=== PATIENT | male | born 1935 | race Caucasian/White ===

== ENCOUNTER 2017-07-15 18:52 | Inpatient (IN) | payer OTHER, BC ==
[~2017-07-15] VITALS: Ht 175.3 cm; Wt 61.3 kg
[~2017-07-15 18:52] MED LIST: ACET-1346 PO; CARB25TA PO; CIPR-255 PO; CLC100X PO; FLR/1 PO; POLY335019 PO; SENN-91 PO; SNM/25100 PO
[2017-07-15] MEDS ORDERED: SODIUM CHLORIDE 0.9% 1000ML 1,000 ML IV STA (18:59)
--- NOTE | 2017-07-15 19:05 | EMERGENCY ROOM VISIT NOTE ---
History Report prepared by Estela: Hamilton Harris Under the Supervision of: Dr. Ashish Gardner M.D. First contact with patient: 18:54 Stated Complaint: [facility] History of Present Illness The patient is a 81 year old male who presents to the Emergency Room with complaints of a resolved syncopal episode that occurred prior to arrival. Per nursing, the patient has a history of Parkinson's and recurrent UTIs. The patient was eating at [facility] when he became pale and lost consciousness for a couple of minutes. His blood pressure was found to be in the 70s systolically. They report that the patient is typically not fully responsive at baseline. Per EMS, the patient's blood pressure was stable the whole ride here. The patient's HPI is limited due to the patient's unresponsiveness. Source of History: patient Onset: MEDICAL RECORD SPECIALIST Position: other (global) Quality: other (syncope) Timing: resolved Note: Associated symptoms: pale, hypotension Review of Systems The patient's ROS is limited due to the patient's unresponsiveness. Past Medical & Surgical Medical Problems: (1) Basal cell carcinoma of ear (2) Benign prostatic hyperplasia (3) Calculus of kidney and ureter (4) CKD (chronic kidney disease) stage 3, GFR 30-59 ml/min (5) Dyslipidemia (6) Parkinson's disease Family History Diabetes mellitus Hypertension Social History Smoking Status: Unknown if Ever Smoked Alcohol Use: none Drug Use: none Marital Status: Housing Status: lives with family Occupation Status: retired Current/Historical Medications Scheduled Carbidopa-Levodopa (Sinemet Cr 25MG/100MG), 1 TAB PO BID Ciprofloxacin Hcl (Cipro), 500 MG PO BID Docusate Sodium (Colace), 100 MG PO BID Fludrocortisone Acetate (Florinef), 50 MCG PO DAILY Levodopa/Carbidopa (Sinemet 25MG/100MG), 0.5 TAB PO Q2H Polyethylene Glycol 3350 (Miralax), 17 GM PO Q2D Sennosides-Docusate Sodium (Senna S), 1 TAB PO DAILY Scheduled PRN Acetaminophen (Acetaminophen), 325 MG PO Q4H PRN for Pain or Fever Allergies Coded Allergies: No Known Allergies (Unverified , 08/13/13) Physical Exam Vital Signs Date Time Temp Pulse Resp B/P (MAP) Pulse Ox O2 Delivery O2 Flow Rate FiO2 07/15/17 19:25 97 Room Air 07/15/17 19:23 81 07/15/17 19:14 36.4 83 22 110/69 97 Room Air Physical Exam GENERAL: Awake, alert, tremulous, well-appearing, in no acute distress HENT: Normocephalic, atraumatic. Oropharynx unremarkable. EYES: Normal conjunctiva. Sclera non-icteric. NECK: Supple. No nuchal rigidity. FROM. No JVD. RESPIRATORY: Clear to auscultation. CARDIAC: Regular rate, normal rhythm. Extremities warm and well perfused. Pulses equal. ABDOMEN: Soft, non-distended. No tenderness to palpation. No rebound or guarding. No masses. RECTAL: Deferred. MUSCULOSKELETAL: Chest examination reveals no tenderness. The back is symmetrical on inspection without obvious abnormality. There is no CVA tenderness to palpation. No joint edema. LOWER EXTREMITIES: Calves are equal size bilaterally and non-tender. No edema. No discoloration. NEURO: Normal sensorium. Answers questions. Tremulous. No sensory or motor deficits noted. SKIN: No rash or jaundice noted. Wound to the anterior chest wall that he states is from basal cell carcinoma. Medical Decision & Procedures ER Provider Diagnostic Interpretation: X-ray results as stated below per interpretation by me and the radiologist: CHEST ONE VIEW PORTABLE HISTORY: Pt c/o hypotension COMPARISON: Chest 04/25/2014. FINDINGS: The lungs are clear. Cardiac silhouette is normal in size. No pleural effusions. No pneumothorax. Moderate to large amount of well-formed stool seen within the colon. IMPRESSION: No acute process. Electronically signed by: Jl Martinez M.D. 07/15/2017 7:50 PM Dictated Date/Time: 07/15/2017 7:49 PM Laboratory Results 07/15/17 00:00 Red Blood Count 3.00, Mean Corpuscular Volume 92.0, Mean Corpuscular Hemoglobin 30.0, Mean Corpuscular Hemoglobin Concent 32.6, Mean Platelet Volume 9.1, Neutrophils (%) (Auto) 58.6, Lymphocytes (%) (Auto) 19.1, Monocytes (%) (Auto) 21.2, Eosinophils (%) (Auto) 0.4, Basophils (%) (Auto) 0.1, Neutrophils # (Auto ) 4.19, Lymphocytes # (Auto) 1.37, Monocytes # (Auto) 1.52, Eosinophils # (Auto ) 0.03, Basophils # (Auto) 0.01 07/15/17 00:00 Test 07/15/17 00:00 White Blood Count 7.16 K/uL (4.8-10.8) Red Blood Count 3.00 M/uL (4.7-6.1) Hemoglobin 9.0 g/dL (14.0-18.0) Hematocrit 27.6 % (42-52) Mean Corpuscular Volume 92.0 fL (80-100) Mean Corpuscular Hemoglobin 30.0 pg (25-34) Mean Corpuscular Hemoglobin Concent 32.6 g/dl (32-36) Platelet Count 297 K/uL (130-400) Mean Platelet Volume 9.1 fL (7.4-10.4) Neutrophils (%) (Auto) 58.6 % Lymphocytes (%) (Auto) 19.1 % Monocytes (%) (Auto) 21.2 % Eosinophils (%) (Auto) 0.4 % Basophils (%) (Auto) 0.1 % Neutrophils # (Auto) 4.19 K/uL (1.4-6.5) Lymphocytes # (Auto) 1.37 K/uL (1.2-3.4) Monocytes # (Auto) 1.52 K/uL (0.11-0.59) Eosinophils # (Auto) 0.03 K/uL (0-0.5) Basophils # (Auto) 0.01 K/uL (0-0.2) RDW Standard Deviation 53.9 fL (36.4-46.3) RDW Coefficient of Variation 15.8 % (11.5-14.5) Immature Granulocyte % (Auto) 0.6 % Immature Granulocyte # (Auto) 0.04 K/uL (0.00-0.02) Anion Gap 7.0 mmol/L (3-11) Est Creatinine Clear Calc Drug Dose 22.1 ml/min Estimated GFR () 29.9 Estimated GFR (Non- 25.8 BUN/Creatinine Ratio 21.7 (10-20) Calcium Level 8.4 mg/dl (8.5-10.1) Total Bilirubin 0.4 mg/dl (0.2-1) Direct Bilirubin < 0.1 mg/dl (0-0.2) Aspartate Amino Transf (AST/SGOT) 10 U/L (15-37) Alanine Aminotransferase (ALT/SGPT) < 6 U/L (12-78) Alkaline Phosphatase 115 U/L (45-117) Total Creatine Kinase 39 U/L (39-308) Creatine Kinase MB 1.0 ng/ml (0.5-3.6) Creatine Kinase MB Ratio 2.6 (0-3.0) Troponin I < 0.015 ng/ml (0-0.045) Total Protein 7.2 gm/dl (6.4-8.2) Albumin 3.5 gm/dl (3.4-5.0) Thyroid Stimulating Hormone (TSH) 1.630 uIu/ml (0.300-4.500) Labs reviewed by ED physician. Medications Administered Medications (Trade) Dose Ordered Sig/Michael Route Start Time Stop Time Status Last Admin Dose Admin Sodium Chloride 1,000 ml @ 999 mls/hr Q1H1M STAT IV 07/15/17 18:59 07/15/17 19:59 DC 07/15/17 19:31 999 MLS/HR Ceftriaxone Sodium (Rocephin Inj) 1 gm NOW STAT IV 07/15/17 19:22 07/15/17 19:23 DC 07/15/17 19:32 1 GM Ciprofloxacin (Cipro Tab) 500 mg NOW STAT PO 07/15/17 19:22 07/15/17 19:23 DC 07/15/17 19:31 500 MG ECG Per My Interpretation Indication: weakness Rate (beats per minute): 83 Rhythm: other (Accelerated junctional) Findings: other (No ST elevation or depression) ED Course 1854: Past medical records reviewed. The patient was evaluated in room B10. A complete history and physical examination was performed. 1858: Sodium Chloride 1000 ml @ 999 mls/hr IV. 1921: Ordered Cipro Tab 500 mg PO, Rocephin Injection 1 gm IV. 1944: I reevaluated the patient and updated his on the results. I discussed the treatment plan, which she agrees to. The patient will be further evaluated. 1958: I discussed the patient's case [facility] He understands the patient's condition and agrees to accept the patient. The patient will be further evaluated. Medical Decision Prior records/ancillary studies reviewed and summarized above. Nursing notes reviewed. Additional history obtained from nursing and EMS. Differential diagnosis: Etiologies such as metabolic, infection, hypo/hyperglycemia, electrolyte abnormalities, cardiac sources, intracerebral event, toxicologic, neurologic, as well as others were entertained. This is an 81-year-old male who presents the emergency department complaining of urinary tract symptoms along with hypotension. Upon arrival to the emergency department the patient is normotensive he was given a normal saline bolus. His creatinine does appear to be slightly elevated. For this reason I did discuss the case with the hospitalist service. Patient was given Rocephin and Cipro here in the emergency department. I did discuss the case with the patient's who was in agreement with the treatment plan. Medication Reconcilliation Current Medication List: was personally reviewed by me Blood Pressure Screening Patient's blood pressure: Normal blood pressure Consults Time Called: 1937 Consulting Physician: Milton Dowd Hospitalist Returned Call: 1958 I discussed the patient's case with [facility]. He understands the patient's condition and agrees to accept the patient. The patient will be further evaluated. Impression Primary Impression: UTI (urinary tract infection) Additional Impression: Dehydration Scribe Attestation The scribe's documentation has been prepared under my direction and personally reviewed by me in its entirety. I confirm that the note above accurately reflects all work, treatment, procedures, and medical decision making performed by me. Departure Information Dispostion Being Evaluated By Hospitalist Referrals Allen Sam D.O. (PCP) Problem Qualifiers Primary Impression: UTI (urinary tract infection) Urinary tract infection type: acute cystitis Hematuria presence: with hematuria Qualified Codes: N30.01 - Acute cystitis with hematuria
[2017-07-15 19:10] LABS: HEMATOCRIT 27.6 % (42-52); MEAN CORPUSCULAR HGB CONC 32.6 g/dl (32-36); MEAN PLATELET VOLUME 9.1 fL (7.4-10.4); PLATELET COUNT 297 K/uL (130-400); RED CELL DISTRIBUTION WIDTH CV 15.8 % (11.5-14.5); RED CELL DISTRIBUTION WIDTH SD 53.9 fL (36.4-46.3); WHITE BLOOD COUNT 7.16 K/uL (4.8-10.8)
[2017-07-15] MEDS ORDERED: CEFTRIAXONE SOD INJ 1 GM ADDVIAL IV STA (19:22)
[2017-07-15] MEDS ORDERED: CIPROFLOXACIN 500 MG TAB PO STA (19:22)
[2017-07-15 19:27] LABS: ALBUMIN 3.5 gm/dl (3.4-5.0); ALT/SGPT < 6 U/L (12-78); AST/SGOT 10 U/L (15-37); BLOOD UREA NITROGEN 49 mg/dl (7-18); CALCIUM 8.4 mg/dl (8.5-10.1); CARBON DIOXIDE 24 mmol/L (21-32); CREATININE 2.28 mg/dl (0.60-1.40); GLUCOSE 98 mg/dl (70-99); POTASSIUM 4.6 mmol/L (3.5-5.1); SODIUM 139 mmol/L (136-145)
[2017-07-15 19:35] LABS: BASO % 0.1 %; BASO ABS # 0.01 K/uL (0-0.2); EOS % 0.4 %; EOS ABS # 0.03 K/uL (0-0.5); IG# 0.04 K/uL (0.00-0.02); LYMPH % 19.1 %; LYMPH ABS # 1.37 K/uL (1.2-3.4); MONO % 21.2 %; MONO ABS # 1.52 K/uL (0.11-0.59); NEUT % 58.6 %; NEUT ABS # 4.19 K/uL (1.4-6.5)
[2017-07-15 19:38] LABS: ALKALINE PHOSPHATASE 115 U/L (45-117); TOTAL PROTEIN 7.2 gm/dl (6.4-8.2)
--- NOTE | 2017-07-15 19:51 | DIAGNOSTIC IMAGING REPORT ---
CHEST ONE VIEW PORTABLE HISTORY: Pt c/o hypotension COMPARISON: Chest 04/25/2014. FINDINGS: The lungs are clear. Cardiac silhouette is normal in size. No pleural effusions. No pneumothorax. Moderate to large amount of well-formed stool seen within the colon. IMPRESSION: No acute process. Electronically signed by: Jl Martinez M.D. 07/15/2017 7:50 PM Dictated Date/Time: 07/15/2017 7:49 PM
[2017-07-15] MEDS ORDERED: ACET-1311 PO (21:06)
[2017-07-15] MEDS ORDERED: MOML PO (21:06)
[2017-07-15] MEDS ORDERED: FLUD0.1T10 PO (21:06)
[2017-07-15] MEDS ORDERED: CARB25TA12 PO (21:06)
[2017-07-15] MEDS ORDERED: TAMS0.4C38 PO (21:06)
[2017-07-15] MEDS ORDERED: MTR400 PO (21:06)
[2017-07-15] MEDS ORDERED: VENL75CA PO (21:06)
[2017-07-15] MEDS ORDERED: POLY335019 PO (21:06)
[2017-07-15] MEDS ORDERED: ACET-1693 PO (21:06)
[2017-07-15] MEDS ORDERED: SENN-91 PO (21:06)
[2017-07-15] MEDS ORDERED: TRIM100T PO (21:06)
[2017-07-15] MEDS ORDERED: CREA1CRE (21:19)
--- NOTE | 2017-07-15 22:10 | History and Physical ---
History & Physical Date & Time of Service: July 15, 2017 at 22:10 Chief Complaint: Lethargic / [facility] Primary Care Physician: Allen Sam D.OHorace History of Present Illness Source: patient, spouse, hospital records, intermediate 81 years old male with past medical history of parkinsonism, recurrent UTI, BPH , CKD stage III from [facility] was sent to the ER for syncope. History is limited due to patient mental status. History obtained from intermediate and ER chart and his . As per patient had 3 recurrent UTI in the past few months. Also said patient has history of orthostatic hypotension. As per when patient is going to the bathroom, patient has to have 2 people to help him walk to the due to drop in the blood pressure when standing that cause him to have dizziness or syncope. As per intermediate chart, the patient was eating when she became pale and lost consciousness for a few minutes. His blood pressure was found to be in the 70 systolic. EMS was called and brought the patient to the ER. As per EMS his BP was stable when transporting. As per his speech has not been very fluent due to the Parkinson in the past few months. As per in the past few months patient has been declined, weak and his appetite has been poor. Denies any chest pain, palpitation, dizziness, shortness of breath, headache, fever and chills. Past Medical/Surgical History Medical Problems: (1) Basal cell carcinoma of ear (2) Benign prostatic hyperplasia (3) Calculus of kidney and ureter (4) CKD (chronic kidney disease) stage 3, GFR 30-59 ml/min (5) Dehydration (6) Dyslipidemia (7) Hypotension (8) Parkinson's disease (9) Parkinsons disease (10) Weakness Family History Diabetes mellitus Hypertension Social History Smoking Status: Unknown if Ever Smoked Drug Use: none Marital Status: Housing status: intermediate Occupational Status: retired Immunizations History of Influenza Vaccine: No History of Tetanus Vaccine?: Unknown History of Pneumococcal: Yes Pneumococcal Date: Jun 02, 2009 History of Hepatitis B Vaccine: No Allergies Coded Allergies: Alfuzosin (Unverified Allergy, Unknown, ., 07/15/17) Home Medications Scheduled Carbidopa/Levodopa (Sinemet 25MG/100MG), 1 TAB PO QID Fludrocortisone Acetate (Florinef), 0.25 TAB PO HS Polyethylene Glycol 3350 (Miralax), 17 GM PO DAILY Tamsulosin Hcl (Flomax), 0.4 MG PO HS Trimethoprim (Proloprim), 100 MG PO HS Venlafaxine Hcl (Effexor Xr), 225 MG PO QAM Scheduled PRN Acetaminophen (Tylenol), 650 MG PO Q4 PRN for Pain Acetaminophen Tab (Tylenol), 650 MG PO AMHS PRN for Pain Ibuprofen (Ibuprofen), 400 MG PO QPM PRN for Headache Magnesium Hydroxide (Milk Of Magnesia), 30 ML PO DAILY PRN for Constipation Sennosides-Docusate Sodium (Senna S), 4 TAB PO AMPM PRN for Constipation Miscellaneous Medications Cream Base (Emollient Cream) Review of Systems Constitutional: + weight loss, + weakness, + fatigue, No fever, No chills Eyes: No eye pain, No discharge ENT: No nasal symptoms, No sore throat Respiratory: No cough, No sputum, No shortness of breath Cardiovascular: No chest pain, No edema, No palpitations Abdomen: No pain, No vomiting Musculoskeletal: No swelling, No calf pain Genitourinary - Male: No hematuria, No dysuria Neurologic: + memory loss, + weakness, + balance problems Psychiatric: No substance abuse Endocrine: + fatigue, No excessive thirst Hematologic / Lymphatic: No abnormal bleeding/bruising, No night sweats Integumentary: No rash, No itch Physical Exam Vital Signs Date Time Temp Pulse Resp B/P (MAP) Pulse Ox O2 Delivery O2 Flow Rate FiO2 07/15/17 21:56 78 18 127/78 100 07/15/17 21:35 78 18 100 07/15/17 21:30 127/78 07/15/17 21:26 125/77 07/15/17 21:05 81 21 100 07/15/17 20:35 81 28 99 07/15/17 20:30 82 33 103/67 99 07/15/17 20:14 82 23 95/57 98 07/15/17 19:25 97 Room Air 07/15/17 19:23 81 07/15/17 19:14 36.4 83 22 110/69 97 Room Air 07/15/17 18:57 84 29 110/69 97 General Appearance: no apparent distress, + cachetic, + pertinent finding Head: normocephalic, atraumatic Eyes: PERRL, EOMI ENT: hearing grossly normal Neck: no JVD, trachea midline Respiratory/Chest: chest non-tender, no respiratory distress, no accessory muscle use Cardiovascular: regular rate, rhythm, no edema, no JVD Abdomen/GI: normal bowel sounds, non tender, soft Back: no CVA tenderness Extremities/Musculoskelatal: no calf tenderness, no pedal edema Neurologic/Psych: no motor/sensory deficits, alert, normal mood/affect Skin: warm/dry, no rash Diagnostics Laboratory Results Results Past 24 Hours Test 07/15/17 00:00 07/15/17 19:26 07/15/17 20:03 Range/Units White Blood Count 7.16 4.8-10.8 K/uL Red Blood Count 3.00 4.7-6.1 M/uL Hemoglobin 9.0 14.0-18.0 g/dL Hematocrit 27.6 42-52 % Mean Corpuscular Volume 92.0 80-100 fL Mean Corpuscular Hemoglobin 30.0 25-34 pg Mean Corpuscular Hemoglobin Concent 32.6 32-36 g/dl Platelet Count 297 130-400 K/uL Mean Platelet Volume 9.1 7.4-10.4 fL Neutrophils (%) (Auto) 58.6 % Lymphocytes (%) (Auto) 19.1 % Monocytes (%) (Auto) 21.2 % Eosinophils (%) (Auto) 0.4 % Basophils (%) (Auto) 0.1 % Neutrophils # (Auto) 4.19 1.4-6.5 K/uL Lymphocytes # (Auto) 1.37 1.2-3.4 K/uL Monocytes # (Auto) 1.52 0.11-0.59 K/uL Eosinophils # (Auto) 0.03 0-0.5 K/uL Basophils # (Auto) 0.01 0-0.2 K/uL RDW Standard Deviation 53.9 36.4-46.3 fL RDW Coefficient of Variation 15.8 11.5-14.5 % Immature Granulocyte % (Auto) 0.6 % Immature Granulocyte # (Auto) 0.04 0.00-0.02 K/uL Sodium Level 139 136-145 mmol/L Potassium Level 4.6 3.5-5.1 mmol/L Chloride Level 108 98-107 mmol/L Carbon Dioxide Level 24 21-32 mmol/L Anion Gap 7.0 3-11 mmol/L Blood Urea Nitrogen 49 7-18 mg/dl Creatinine 2.28 0.60-1.40 mg/dl Est Creatinine Clear Calc Drug Dose 22.1 ml/min Estimated GFR () 29.9 Estimated GFR (Non- 25.8 BUN/Creatinine Ratio 21.7 10-20 Random Glucose 98 70-99 mg/dl Calcium Level 8.4 8.5-10.1 mg/dl Total Bilirubin 0.4 0.2-1 mg/dl Direct Bilirubin < 0.1 0-0.2 mg/dl Aspartate Amino Transf (AST/SGOT) 10 15-37 U/L Alanine Aminotransferase (ALT/SGPT) < 6 12-78 U/L Alkaline Phosphatase 115 45-117 U/L Total Creatine Kinase 39 39-308 U/L Creatine Kinase MB 1.0 0.5-3.6 ng/ml Creatine Kinase MB Ratio 2.6 0-3.0 Troponin I < 0.015 0-0.045 ng/ml Total Protein 7.2 6.4-8.2 gm/dl Albumin 3.5 3.4-5.0 gm/dl Thyroid Stimulating Hormone (TSH) 1.630 0.300-4.500 uIu/ml Bedside Glucose 120 70-99 mg/dl Urine Color ORANGE Urine Appearance CLOUDY CLEAR Urine pH >= 9.0 4.5-7.5 Urine Specific [place] 1.018 1.000-1.030 Urine Protein NEG NEG Urine Glucose (UA) NEG NEG Urine Ketones NEG NEG Urine Occult Blood 2+ NEG Urine Nitrite NEG NEG Urine Bilirubin NEG NEG Urine Urobilinogen NEG NEG Urine Leukocyte Esterase LARGE NEG Urine WBC (Auto) >30 0-5 /hpf Urine RBC (Auto) >30 0-4 /hpf Urine Hyaline Casts (Auto) 5-10 0-5 /lpf Urine Epithelial Cells (Auto) 20-30 0-5 /lpf Urine Bacteria (Auto) 4+ NEG Urine Yeast (Auto) NONE PRSENT Microbiology Results 07/15/17 Urine Culture, Received Pending Diagnostic Radiology CHEST ONE VIEW PORTABLE HISTORY: Pt c/o hypotension COMPARISON: Chest 04/25/2014. FINDINGS: The lungs are clear. Cardiac silhouette is normal in size. No pleural effusions. No pneumothorax. Moderate to large amount of well-formed stool seen within the colon. IMPRESSION: No acute process. Electronically signed by: Jl Martinez M.D. 07/15/2017 7:50 PM Dictated Date/Time: 07/15/2017 7:49 PM Impression Assessment and Plan Syncopal episode Possible related to orthostatic hypotension Vs Vasovagal No focal neuro deficit Stable UTI History of recurrent UTI UA positive for large leukocyte and bacteria Received Cipro and Rocephin in the ER Recent urine culture on 06/21 grew proteus mirabilis that was sensitive to Rocephin We will continue Rocephin IV Check urine culture and blood culture Hypotension Possible related to dehydration Receive IV fluid Continue gentle hydration Monitor BP Acute kidney injury on CKD stage III Baseline creatinine 1 Creatinine on admission 2.2 Continue IV fluid Avoid nephrotoxic agent Monitor BMP BPH Continue Flomax Weight loss Due to poor oral intake Increase protein intake in diet Consult nutrition Parkinsonism Continue levodopa-carbidopa DVT prophylaxis on heparin subcu CODE STATUS full code Resuscitation Status VTE Prophylaxis Will order VTE Prophylaxis: Yes
[2017-07-15 22:25] VITALS: BP 141/81; PULSE 76; TEMP 36.6; O2SAT 96; Ht 175.3 cm; Wt 61.3 kg
[2017-07-15 23:48] VITALS: BP 132/78; PULSE 80; TEMP 36.7; O2SAT 98
[2017-07-16] VITALS (8 sets, daily range): BP systolic 112–132; BP diastolic 65–78; PULSE 71–92; TEMP 36.3–36.7; O2SAT 96–99
[2017-07-16] MEDS ORDERED: ACETAMINOPHEN 325 MG TAB PO PRN
[2017-07-16] MEDS ORDERED: SODIUM CHLORIDE 0.9% 1000ML 1,000 ML IV SCH
[2017-07-16 06:29] LABS: HEMATOCRIT 26.2 % (42-52); HEMOGLOBIN 8.5 g/dL (14.0-18.0); MEAN CELL VOLUME 92.6 fL (80-100); MEAN CORPUSCULAR HGB CONC 32.4 g/dl (32-36); MEAN PLATELET VOLUME 9.3 fL (7.4-10.4); PLATELET COUNT 286 K/uL (130-400); RED CELL DISTRIBUTION WIDTH CV 15.7 % (11.5-14.5); RED CELL DISTRIBUTION WIDTH SD 53.8 fL (36.4-46.3); WHITE BLOOD COUNT 6.56 K/uL (4.8-10.8)
[2017-07-16 06:54] LABS: CALCIUM 8.2 mg/dl (8.5-10.1); CREATININE 1.92 mg/dl (0.60-1.40); POTASSIUM 4.3 mmol/L (3.5-5.1)
[2017-07-16] MEDS: VENLAFAXINE HCL XR 75 MG CAPXR PO SCH (08:14)
[2017-07-16] MEDS: CARBIDOPA/LEVODOPA 25/100MG TAB PO SCH ×4 (08:14→20:59)
[2017-07-16] MEDS: HEPARIN SOD 5000 UNIT/0.5 ML CARP SQ SCH ×2 (08:23→21:00)
--- NOTE | 2017-07-16 12:57 | Progress Note ---
Internal Med Progress Note Date of Service: July 16, 2017. Provider Documentation: SUBJECTIVE: The patient was seen and examined in telemetry unit. He is 81YO male with parkinsonism, recurrent UTI, BPH, CKD stage III from [facility] was sent to the ER for syncope He was noted to have a very low blood pressure at 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 ASSESSMENT & PLAN: Syncopal episode Possible related to orthostatic Hypotension Vs Vasovagal Blood Pressure was noted to be low at [facility] No focal neuro deficit No more low blood pressure noted No more orthostasis UTI History of recurrent UTI UA positive for large leukocyte and bacteria Received Cipro and Rocephin in the ER Recent urine culture on 06/21 grew proteus mirabilis that was sensitive to Rocephin We will continue Rocephin IV Check urine culture and blood culture-pending Hypotension-resolved in the Hospital Possible related to dehydration Receive IV fluid Continue gentle hydration Monitor BP Acute kidney injury on CKD stage III Baseline creatinine 1 Creatinine on admission 2.2 Continue IV fluid Avoid nephrotoxic agent Creatinine is improving BPH Continue Flomax Weight loss Due to poor oral intake Increase protein intake in diet Consult nutrition Parkinsonism Continue levodopa-carbidopa DVT prophylaxis on heparin subcu CODE STATUS full code Vital Signs: Date Time Temp Pulse Resp B/P (MAP) Pulse Ox O2 Delivery O2 Flow Rate FiO2 07/16/17 11:50 Room Air 07/16/17 11:40 36.7 71 18 121/68 (85) 99 07/16/17 07:45 Room Air 07/16/17 07:09 36.7 75 18 132/76 (94) 98 07/16/17 04:00 97 Room Air 07/16/17 03:11 36.3 73 17 112/68 (83) 97 Room Air 07/16/17 00:01 96 Room Air 07/15/17 23:48 36.7 80 18 132/78 (96) 98 Room Air 07/15/17 22:25 36.6 76 18 141/81 96 T-piece 07/15/17 21:56 78 18 127/78 100 07/15/17 21:35 78 18 100 07/15/17 21:30 127/78 07/15/17 21:26 125/77 07/15/17 21:05 81 21 100 07/15/17 20:35 81 28 99 07/15/17 20:30 82 33 103/67 99 07/15/17 20:14 82 23 95/57 98 07/15/17 19:25 97 Room Air 07/15/17 19:23 81 07/15/17 19:14 36.4 83 22 110/69 97 Room Air 07/15/17 18:57 84 29 110/69 97 Lab Results: Results Past 24 Hours Test 07/15/17 19:03 07/15/17 19:26 07/15/17 20:03 07/16/17 05:39 Range/Units Prothrombin Time 10.6 9.0-12.0 SECONDS Prothromb Time International Ratio 1.0 0.9-1.1 Bedside Glucose 120 70-99 mg/dl Urine Color ORANGE Urine Appearance CLOUDY CLEAR Urine pH >= 9.0 4.5-7.5 Urine Specific [place] 1.018 1.000-1.030 Urine Protein NEG NEG Urine Glucose (UA) NEG NEG Urine Ketones NEG NEG Urine Occult Blood 2+ NEG Urine Nitrite NEG NEG Urine Bilirubin NEG NEG Urine Urobilinogen NEG NEG Urine Leukocyte Esterase LARGE NEG Urine WBC (Auto) >30 0-5 /hpf Urine RBC (Auto) >30 0-4 /hpf Urine Hyaline Casts (Auto) 5-10 0-5 /lpf Urine Epithelial Cells (Auto) 20-30 0-5 /lpf Urine Bacteria (Auto) 4+ NEG Urine Yeast (Auto) NONE PRSENT White Blood Count 6.56 4.8-10.8 K/uL Red Blood Count 2.83 4.7-6.1 M/uL Hemoglobin 8.5 14.0-18.0 g/dL Hematocrit 26.2 42-52 % Mean Corpuscular Volume 92.6 80-100 fL Mean Corpuscular Hemoglobin 30.0 25-34 pg Mean Corpuscular Hemoglobin Concent 32.4 32-36 g/dl RDW Standard Deviation 53.8 36.4-46.3 fL RDW Coefficient of Variation 15.7 11.5-14.5 % Platelet Count 286 130-400 K/uL Mean Platelet Volume 9.3 7.4-10.4 fL Sodium Level 139 136-145 mmol/L Potassium Level 4.3 3.5-5.1 mmol/L Chloride Level 110 98-107 mmol/L Carbon Dioxide Level 22 21-32 mmol/L Anion Gap 7.0 3-11 mmol/L Blood Urea Nitrogen 43 7-18 mg/dl Creatinine 1.92 0.60-1.40 mg/dl Est Creatinine Clear Calc Drug Dose 25.5 ml/min Estimated GFR () 36.8 Estimated GFR (Non- 31.7 BUN/Creatinine Ratio 22.5 10-20 Random Glucose 94 70-99 mg/dl Calcium Level 8.2 8.5-10.1 mg/dl Microbiology Results 07/16/17 Blood Culture, Received Pending 07/16/17 Blood Culture, Received Pending 07/15/17 Urine Culture, Received Pending
[2017-07-16] MEDS: FLUDROCORTISONE ACETATE 0.1 MG TAB PO SCH (20:58)
[2017-07-16] MEDS: CEFTRIAXONE SOD INJ 1 GM in DEXTROSE 5% ADD-VANTAGE 50ML 50 ML IV SCH (20:58)
[2017-07-16] MEDS: TAMSULOSIN HCL 0.4 MG CAP PO SCH (20:59)
[2017-07-17 03:38] VITALS: BP 124/71; PULSE 79; TEMP 36.7; O2SAT 96
[2017-07-17 06:46] VITALS: BP 121/70; PULSE 76; TEMP 36.8; O2SAT 96
[2017-07-17] MEDS: HEPARIN SOD 5000 UNIT/0.5 ML CARP SQ SCH ×2 (09:00→20:31)
[2017-07-17] MEDS: CARBIDOPA/LEVODOPA 25/100MG TAB PO SCH ×4 (09:00→20:29)
[2017-07-17] MEDS: VENLAFAXINE HCL XR 75 MG CAPXR PO SCH (09:00)
[2017-07-17 11:23] VITALS: BP 95/59; PULSE 78; TEMP 36.4; O2SAT 97
--- NOTE | 2017-07-17 12:53 | Progress Note ---
Internal Med Progress Note Date of Service: July 17, 2017. Provider Documentation: SUBJECTIVE: The patient was seen and examined in telemetry unit. He is 81YO male with parkinsonism, recurrent UTI, BPH, CKD stage III from [facility] was sent to the ER for syncope He was noted to have a very low blood pressure at [facility] Did not have any episode of low blood pressure while in the hospital Denies any significant symptoms today 07/17 Denies any symptoms today Has generalized weakness OBJECTIVE: Vital Signs-as noted below Exam: General-no apparent distress at rest Anxious Eyes-normal ENT-normal Neck-supple Lungs-clear to auscultate bilaterally Heart-regular Abdomen-benign, soft, nontender, bowel sounds present Extremities-negative for any edema 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 ASSESSMENT & PLAN: Syncopal episode Possible related to orthostatic Hypotension Vs Vasovagal Blood Pressure was noted to be low at [facility] No focal neuro deficit No more low blood pressure noted Check Orthostasis UTI-Gm Negative Bacilli History of recurrent UTI UA positive for large leukocyte and bacteria Received Cipro and Rocephin in the ER Recent urine culture on 06/21 grew proteus mirabilis that was sensitive to Rocephin We will continue Rocephin IV Check urine culture and blood culture-Gm negative Bacilli Hypotension-resolved in the Hospital Possible related to dehydration Receive IV fluid Continue gentle hydration Monitor BP-lower side now Acute kidney injury on CKD stage III Baseline creatinine 1 Creatinine on admission 2.2 Continue IV fluid Avoid nephrotoxic agent Creatinine is improving -1.92 today BPH Continue Flomax Weight loss Due to poor oral intake Increase protein intake in diet Consult nutrition Parkinsonism Continue levodopa-carbidopa No acute symptoms DVT prophylaxis on heparin subcu CODE STATUS full code Vital Signs: Date Time Temp Pulse Resp B/P (MAP) Pulse Ox O2 Delivery O2 Flow Rate FiO2 07/17/17 12:00 Room Air 07/17/17 11:23 36.4 78 16 95/59 (71) 97 07/17/17 08:00 Room Air 07/17/17 06:46 36.8 76 17 121/70 (87) 96 Room Air 07/17/17 04:00 Room Air 07/17/17 03:38 36.7 79 17 124/71 (88) 96 Room Air 07/17/17 00:00 Room Air 07/16/17 23:34 36.7 92 18 129/65 (86) 97 Room Air 07/16/17 20:00 Room Air 07/16/17 19:17 36.5 85 18 114/75 (88) 97 Room Air 07/16/17 16:00 Room Air 07/16/17 15:24 36.5 75 18 129/78 (95) 98 Room Air Lab Results: Results Past 24 Hours Test 07/17/17 05:46 Range/Units Iron Level 40 35-175 mcg/dl Total Iron Binding Capacity 206 250-450 mcg/dl Transferrin 160 200-360 mg/dl Transferrin % Saturation 0 20-50 % C-Reactive Protein 1.29 0-0.29 mg/dl Prealbumin 24.0 20-40 mg/dl
[2017-07-17 15:16] VITALS: BP 101/58; PULSE 81; TEMP 36.5; O2SAT 97
[2017-07-17 19:01] VITALS: BP 93/54; PULSE 83; TEMP 36.9; O2SAT 97
[2017-07-17] MEDS: CEFTRIAXONE SOD INJ 1 GM in DEXTROSE 5% ADD-VANTAGE 50ML 50 ML IV SCH (20:28)
[2017-07-17] MEDS: TAMSULOSIN HCL 0.4 MG CAP PO SCH (20:29)
[2017-07-17] MEDS: FLUDROCORTISONE ACETATE 0.1 MG TAB PO SCH (20:29)
[2017-07-17 23:28] VITALS: BP 130/80; PULSE 79; TEMP 37.1; O2SAT 97
[2017-07-18] VITALS (8 sets, daily range): BP systolic 94–167; BP diastolic 53–86; PULSE 74–89; TEMP 36.5–36.7; O2SAT 94–97
[2017-07-18] MEDS: VENLAFAXINE HCL XR 75 MG CAPXR PO SCH (08:36)
[2017-07-18] MEDS: CARBIDOPA/LEVODOPA 25/100MG TAB PO SCH ×4 (08:36→19:51)
[2017-07-18] MEDS: HEPARIN SOD 5000 UNIT/0.5 ML CARP SQ SCH ×2 (08:37→19:55)
--- NOTE | 2017-07-18 15:25 | Progress Note ---
Internal Med Progress Note Date of Service: July 18, 2017. Provider Documentation: SUBJECTIVE: The patient was seen and examined in telemetry unit. He is 81YO male with parkinsonism, recurrent UTI, BPH, CKD stage III from [facility] was sent to the ER for syncope He was noted to have a very low blood pressure at [facility] Did not have any episode of low blood pressure while in the hospital Denies any significant symptoms today 07/18 Denies any symptoms today Has generalized weakness Almost bedbound as baseline OBJECTIVE: Vital Signs-as noted below Exam: General-no apparent distress at rest Anxious Eyes-normal ENT-normal Neck-supple Lungs-clear to auscultate bilaterally Heart-regular Abdomen-benign, soft, nontender, bowel sounds present Extremities-negative for any edema 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 ASSESSMENT & PLAN: Syncopal episode Possible related to orthostatic Hypotension Vs Vasovagal Blood Pressure was noted to be low at [facility] No focal neuro deficit No more low blood pressure noted Check Orthostasis-can not be checked as he can not stand upright Wheelchair bound UTI-Gm Negative Bacilli History of recurrent UTI UA positive for large leukocyte and bacteria Received Cipro and Rocephin in the ER Recent urine culture on 06/21 grew proteus mirabilis that was sensitive to Rocephin We will continue Rocephin IV Check urine culture and blood culture-Gm negative Bacilli,Proteus Will change to oral before discharge Hypotension-resolved in the Hospital Possible related to dehydration Receive IV fluid Continue gentle hydration Monitor BP-lower side now Acute kidney injury on CKD stage III Baseline creatinine 1 Creatinine on admission 2.2 Continue IV fluid Avoid nephrotoxic agent Creatinine is improving -1.92 today BPH Continue Flomax Weight loss Due to poor oral intake Increase protein intake in diet Consult nutrition Parkinsonism Continue levodopa-carbidopa No acute symptoms DVT prophylaxis on heparin subcu CODE STATUS full code Likely discharge tomorrow Vital Signs: Date Time Temp Pulse Resp B/P (MAP) Pulse Ox O2 Delivery O2 Flow Rate FiO2 07/18/17 12:06 36.5 89 16 94/53 (67) 96 07/18/17 12:00 96 Room Air 07/18/17 08:00 95 Room Air 07/18/17 06:57 36.7 74 19 138/78 (98) 96 Room Air 07/18/17 04:00 Room Air 07/18/17 03:47 36.7 74 19 148/83 (104) 97 Room Air 07/18/17 00:01 Room Air 07/17/17 23:28 37.1 79 18 130/80 (97) 97 Room Air 07/17/17 20:00 Room Air 07/17/17 19:01 36.9 83 18 93/54 (67) 97 Room Air 07/17/17 16:00 Room Air
[2017-07-18] MEDS ORDERED: LORAZEPAM 2 MG/ML 1 ML VIAL IV STA (18:40)
[2017-07-18] MEDS: CEFTRIAXONE SOD INJ 1 GM in DEXTROSE 5% ADD-VANTAGE 50ML 50 ML IV SCH (19:49)
[2017-07-18] MEDS: FLUDROCORTISONE ACETATE 0.1 MG TAB PO SCH (19:52)
[2017-07-18] MEDS: TAMSULOSIN HCL 0.4 MG CAP PO SCH (19:53)
[2017-07-19] VITALS (8 sets, daily range): BP systolic 93–161; BP diastolic 57–89; PULSE 72–88; TEMP 36.6–37; O2SAT 96–99
[2017-07-19 05:47] LABS: HEMATOCRIT 25.4 % (42-52); HEMOGLOBIN 8.3 g/dL (14.0-18.0); MEAN CELL VOLUME 90.7 fL (80-100); MEAN CORPUSCULAR HEMOGLOBIN 29.6 pg (25-34); MEAN CORPUSCULAR HGB CONC 32.7 g/dl (32-36); MEAN PLATELET VOLUME 8.9 fL (7.4-10.4); PLATELET COUNT 288 K/uL (130-400); RED CELL DISTRIBUTION WIDTH CV 15.5 % (11.5-14.5); RED CELL DISTRIBUTION WIDTH SD 51.5 fL (36.4-46.3); WHITE BLOOD COUNT 6.56 K/uL (4.8-10.8)
[2017-07-19] MEDS: VENLAFAXINE HCL XR 75 MG CAPXR PO SCH (08:11)
[2017-07-19] MEDS: CARBIDOPA/LEVODOPA 25/100MG TAB PO SCH ×4 (08:11→20:58)
[2017-07-19] MEDS: HEPARIN SOD 5000 UNIT/0.5 ML CARP SQ SCH ×2 (08:13→21:00)
--- NOTE | 2017-07-19 16:56 | Progress Note ---
Internal Med Progress Note Date of Service: July 19, 2017. Provider Documentation: SUBJECTIVE: The patient was seen and examined in telemetry unit. He is 81YO male with parkinsonism, recurrent UTI, BPH, CKD stage III from [facility] was sent to the ER for syncope He was noted to have a very low blood pressure at [facility] Did not have any episode of low blood pressure while in the hospital Denies any significant symptoms today 07/18 Denies any symptoms today Has generalized weakness Almost bedbound as baseline 07/19 Remains stable and generally very weak and lethargic Seen and examined in presence with the Son OBJECTIVE: Vital Signs-as noted below Exam: General-no apparent distress at rest Anxious Eyes-normal ENT-normal Neck-supple Lungs-clear to auscultate bilaterally Heart-regular Abdomen-benign, soft, nontender, bowel sounds present Extremities-negative for any edema 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 ASSESSMENT & PLAN: Syncopal episode Possible related to orthostatic Hypotension Vs Vasovagal Blood Pressure was noted to be low at [facility] No focal neuro deficit No more low blood pressure noted Check Orthostasis-can not be checked as he can not stand upright Wheelchair bound Can go back to [place] tomorrow UTI-Gm Negative Bacilli History of recurrent UTI UA positive for large leukocyte and bacteria Received Cipro and Rocephin in the ER Recent urine culture on 06/21 grew proteus mirabilis that was sensitive to Rocephin We will continue Rocephin IV Check urine culture and blood culture-Gm negative Bacilli,Proteus Will change to oral before discharge Will change to Oral Keflex Hypotension-resolved in the Hospital Possible related to dehydration Receive IV fluid Continue gentle hydration Monitor BP-lower side now Will need to take more time during any activity Acute kidney injury on CKD stage III Baseline creatinine 1 Creatinine on admission 2.2 Continue IV fluid Avoid nephrotoxic agent Creatinine is improving -1.92 today BPH Continue Flomax Weight loss Due to poor oral intake Increase protein intake in diet Consult nutrition Parkinsonism Continue levodopa-carbidopa No acute symptoms DVT prophylaxis on heparin subcu CODE STATUS full code Likely discharge tomorrow Vital Signs: Date Time Temp Pulse Resp B/P (MAP) Pulse Ox O2 Delivery O2 Flow Rate FiO2 5/17/18 16:00 98 Room Air 07/19/17 15:26 36.9 86 18 120/68 (85) 97 Room Air 07/19/17 12:00 36.7 84 20 158/80 (106) 98 Room Air 07/19/17 12:00 98 Room Air 07/19/17 08:00 82 07/19/17 08:00 98 Room Air 07/19/17 06:38 36.6 72 18 161/89 (113) 98 Room Air 07/19/17 04:00 Room Air 07/19/17 03:22 36.7 78 20 150/73 (98) 99 Room Air 07/18/17 23:59 Room Air 07/18/17 23:31 36.7 81 20 156/74 (101) 97 Room Air 07/18/17 20:00 Room Air 07/18/17 19:36 36.6 86 20 111/72 (85) 97 Room Air Lab Results: Results Past 24 Hours Test 07/19/17 05:21 Range/Units White Blood Count 6.56 4.8-10.8 K/uL Red Blood Count 2.80 4.7-6.1 M/uL Hemoglobin 8.3 14.0-18.0 g/dL Hematocrit 25.4 42-52 % Mean Corpuscular Volume 90.7 80-100 fL Mean Corpuscular Hemoglobin 29.6 25-34 pg Mean Corpuscular Hemoglobin Concent 32.7 32-36 g/dl RDW Standard Deviation 51.5 36.4-46.3 fL RDW Coefficient of Variation 15.5 11.5-14.5 % Platelet Count 288 130-400 K/uL Mean Platelet Volume 8.9 7.4-10.4 fL
[2017-07-19] MEDS: FERROUS SULFATE 325 MG TAB PO SCH (17:29)
[2017-07-19] MEDS: CEFTRIAXONE SOD INJ 1 GM in DEXTROSE 5% ADD-VANTAGE 50ML 50 ML IV SCH (20:53)
[2017-07-19] MEDS: FLUDROCORTISONE ACETATE 0.1 MG TAB PO SCH (20:57)
[2017-07-19] MEDS: TAMSULOSIN HCL 0.4 MG CAP PO SCH (20:58)
[2017-07-20 04:00] VITALS: BP 115/69; PULSE 84; TEMP 37.1; O2SAT 96
[2017-07-20 06:40] VITALS: BP 133/77; PULSE 75; TEMP 36.9; O2SAT 97
[2017-07-20] MEDS: CARBIDOPA/LEVODOPA 25/100MG TAB PO SCH ×2 (07:43→13:03)
[2017-07-20] MEDS: FERROUS SULFATE 325 MG TAB PO SCH (07:43)
[2017-07-20] MEDS: VENLAFAXINE HCL XR 75 MG CAPXR PO SCH (07:43)
[2017-07-20] MEDS: HEPARIN SOD 5000 UNIT/0.5 ML CARP SQ SCH (07:50)
[2017-07-20 11:30] VITALS: BP 119/71; PULSE 82; TEMP 36.8; O2SAT 98
--- NOTE | 2017-07-20 12:24 | Progress Note ---
Internal Med Progress Note Date of Service: July 20, 2017. Provider Documentation: SUBJECTIVE: The patient was seen and examined in telemetry unit. He is 81YO male with parkinsonism, recurrent UTI, BPH, CKD stage III from [facility] was sent to the ER for syncope He was noted to have a very low blood pressure at [facility] Did not have any episode of low blood pressure while in the hospital Denies any significant symptoms today 07/18 Denies any symptoms today Has generalized weakness Almost bedbound as baseline 07/19 Remains stable and generally very weak and lethargic Seen and examined in presence with the Son 07/20 Remains free from any symptoms Ready to be discharged OBJECTIVE: Vital Signs-as noted below Exam: General-no apparent distress at rest Eyes-normal ENT-normal Neck-supple Lungs-clear to auscultate bilaterally Decreased breath sound bilaterally Heart-regular Abdomen-benign, soft, nontender, bowel sounds present Extremities-negative for any edema 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 ASSESSMENT & PLAN: Syncopal episode Possible related to orthostatic Hypotension Vs Vasovagal Blood Pressure was noted to be low at [facility] [place] No focal neuro deficit No more low blood pressure noted Check Orthostasis-can not be checked as he can not stand upright Wheelchair bound Remains stable without any symptoms Can go back to [facility] today UTI-Gm Negative Bacilli History of recurrent UTI UA positive for large leukocyte and bacteria Received Cipro and Rocephin in the ER Recent urine culture on 06/21 grew proteus mirabilis that was sensitive to Rocephin We will continue Rocephin IV Check urine culture and blood culture-Gm negative Bacilli,Proteus Will change to oral before discharge Will change to Oral Keflex Total 10 days course Hypotension-resolved in the Hospital Possible related to dehydration Receive IV fluid Continue gentle hydration Monitor BP-lower side now Will need to take more time during any activity Explained to son Acute kidney injury on CKD stage III Baseline creatinine 1 Creatinine on admission 2.2 Continue IV fluid Avoid nephrotoxic agent Creatinine is improving -1.92 today BPH Continue Flomax Weight loss Due to poor oral intake Increase protein intake in diet Consult nutrition Parkinsonism Continue levodopa-carbidopa No acute symptoms DVT prophylaxis on heparin subcu CODE STATUS full code Discharge this afternoon Vital Signs: Date Time Temp Pulse Resp B/P (MAP) Pulse Ox O2 Delivery O2 Flow Rate FiO2 07/20/17 12:03 Room Air 07/20/17 11:30 36.8 82 22 119/71 (87) 98 Room Air 07/20/17 08:21 Room Air 07/20/17 06:40 36.9 75 16 133/77 (95) 97 Room Air 07/20/17 04:00 37.1 84 16 115/69 (84) 96 Room Air 07/20/17 04:00 Room Air 07/20/17 00:03 Room Air 07/19/17 23:53 37.0 82 19 124/73 (90) 97 Room Air 07/19/17 20:00 Room Air 07/19/17 19:33 36.9 88 18 93/57 (69) 96 Room Air 07/19/17 16:00 98 Room Air 07/19/17 15:26 36.9 86 18 120/68 (85) 97 Room Air
[2017-07-20] MEDS ORDERED: CEPHALEXIN MONOHYDRATE 250 MG CAP PO ONE (12:30)
[2017-07-20 13:08] VITALS: BP 119/71; PULSE 82; TEMP 36.8; O2SAT 98
[2017-07-20] MEDS ORDERED: KFL250 PO (13:59)
[2017-07-20] MEDS ORDERED: FRRS300 PO (13:59)
[2017-07-20] MEDS ORDERED: LCTX PO (13:59)
--- NOTE | 2017-07-20 14:02 | Discharge Instructions ---
Discharge Instructions Date of Service July 20, 2017. Admission Reason for Admission: Hypotension Discharge Discharge Diagnosis / Problem: Syncope,Secondary to Postural Hypotension , Parkinson disease,UTI Discharge Goals Goal(s): Prevent Disease Progression Activity Recommendations Activity Level: Assistance Required Therapies: Physical Therapy, Occupational Therapy . Additional Information Patient informed of condition: Yes Advance Directives: No DNR: No Level of Care: Skilled Communicable Disease: No Prognosis: Stable Oxygen at (LPM): 2 liters/min via NC as needed Current Hospital Diet Patient's current hospital diet: Regular Diet Discharge Diet Recommended Diet: Regular Diet (Take precaution to prevent aspiration) Pending Studies Studies pending at discharge: no Medical Emergencies . Who to Call and When: Medical Emergencies: If at any time you feel your situation is an emergency, please call 911 immediately. . Non-Emergent Contact Non-Emergency issues call your: Primary Care Provider . Past History Medical & Surgical History: (1) Dehydration (2) UTI (urinary tract infection) (3) Hypotension (4) Dyslipidemia (5) Parkinson's disease (6) Benign prostatic hyperplasia (7) CKD (chronic kidney disease) stage 3, GFR 30-59 ml/min . "Provider Documentation" section prepared by Terence Nguyen. . Core Measure Problem Core Measures: None
[2017-07-20] MEDS ORDERED: CEPHALEXIN MONOHYDRATE 250 MG CAP PO SCH (17:00)
[2017-07-20] MEDS ORDERED: LACTOBACILLUS ACIDOPHILUS (FLORANEX) TAB PO SCH (21:00)
--- NOTE | 2017-07-21 08:16 | Discharge Summary ---
Discharge Summary Date of Service July 21, 2017. Discharge Summary Admission Date: July 15, 2017 at 21:13 Discharge Date: July 20, 2017 Discharge Disposition: correction facility Principal Diagnosis: Syncope,Secondary to Postural Hypotension ,Parkinson disease,UTI Secondary Diagnoses/Problems: Please see H&P and Hospital Progress note Admission Information HPI (per Admitting provider): 81 years old male with past medical history of parkinsonism, recurrent UTI, BPH , CKD stage III from [facility] was sent to the ER for syncope. History is limited due to patient mental status. History obtained from long-term and ER chart and his . As per patient had 3 recurrent UTI in the past few months. Also said patient has history of orthostatic hypotension. As per when patient is going to the bathroom, patient has to have 2 people to help him walk to the due to drop in the blood pressure when standing that cause him to have dizziness or syncope. As per long-term chart, the patient was eating when she became pale and lost consciousness for a few minutes. His blood pressure was found to be in the 70 systolic. EMS was called and brought the patient to the ER. As per EMS his BP was stable when transporting. As per his speech has not been very fluent due to the Parkinson in the past few months. As per in the past few months patient has been declined, weak and his appetite has been poor. Denies any chest pain, palpitation, dizziness, shortness of breath, headache, fever and chills. Past Medical/Surgical History Medical Problems: (1) Basal cell carcinoma of ear (2) Benign prostatic hyperplasia (3) Calculus of kidney and ureter (4) CKD (chronic kidney disease) stage 3, GFR 30-59 ml/min (5) Dehydration (6) Dyslipidemia (7) Hypotension (8) Parkinson's disease (9) Parkinsons disease (10) Weakness Family History Diabetes mellitus Hypertension Social History Smoking Status: Unknown if Ever Smoked Drug Use: none Marital Status: Housing status: long-term Occupational Status: retired Immunizations History of Influenza Vaccine: No History of Tetanus Vaccine?: Unknown History of Pneumococcal: Yes Pneumococcal Date: Jun 02, 2009 History of Hepatitis B Vaccine: No Allergies Coded Allergies: Alfuzosin (Unverified Allergy, Unknown, ., 07/15/17) Home Medications Scheduled Carbidopa/Levodopa (Sinemet 25MG/100MG), 1 TAB PO QID Fludrocortisone Acetate (Florinef), 0.25 TAB PO HS Polyethylene Glycol 3350 (Miralax), 17 GM PO DAILY Tamsulosin Hcl (Flomax), 0.4 MG PO HS Trimethoprim (Proloprim), 100 MG PO HS Venlafaxine Hcl (Effexor Xr), 225 MG PO QAM Scheduled PRN Acetaminophen (Tylenol), 650 MG PO Q4 PRN for Pain Acetaminophen Tab (Tylenol), 650 MG PO AMHS PRN for Pain Ibuprofen (Ibuprofen), 400 MG PO QPM PRN for Headache Magnesium Hydroxide (Milk Of Magnesia), 30 ML PO DAILY PRN for Constipation Sennosides-Docusate Sodium (Senna S), 4 TAB PO AMPM PRN for Constipation Miscellaneous Medications Cream Base (Emollient Cream) Review of Systems Constitutional: + weight loss, + weakness, + fatigue, No fever, No chills Eyes: No eye pain, No discharge ENT: No nasal symptoms, No sore throat Respiratory: No cough, No sputum, No shortness of breath Cardiovascular: No chest pain, No edema, No palpitations Abdomen: No pain, No vomiting Musculoskeletal: No swelling, No calf pain Genitourinary - Male: No hematuria, No dysuria Neurologic: + memory loss, + weakness, + balance problems Psychiatric: No substance abuse Endocrine: + fatigue, No excessive thirst Hematologic / Lymphatic: No abnormal bleeding/bruising, No night sweats Integumentary: No rash, No itch Physical Exam H&P v2 Physical Exam Vital Signs Date Time Temp Pulse Resp B/P (MAP) Pulse Ox O2 Delivery O2 Flow Rate FiO2 07/15/17 21:56 78 18 127/78 100 07/15/17 21:35 78 18 100 07/15/17 21:30 127/78 07/15/17 21:26 125/77 07/15/17 21:05 81 21 100 07/15/17 20:35 81 28 99 07/15/17 20:30 82 33 103/67 99 07/15/17 20:14 82 23 95/57 98 07/15/17 19:25 97 Room Air 07/15/17 19:23 81 07/15/17 19:14 36.4 83 22 110/69 97 Room Air 07/15/17 18:57 84 29 110/69 97 General Appearance: no apparent distress, + cachetic, + pertinent finding Head: normocephalic, atraumatic Eyes: PERRL, EOMI ENT: hearing grossly normal Neck: no JVD, trachea midline Respiratory/Chest: chest non-tender, no respiratory distress, no accessory muscle use Cardiovascular: regular rate, rhythm, no edema, no JVD Abdomen/GI: normal bowel sounds, non tender, soft Back: no CVA tenderness Extremities/Musculoskelatal: no calf tenderness, no pedal edema Neurologic/Psych: no motor/sensory deficits, alert, normal mood/affect Skin: warm/dry, no rash Diagnostics H&P v2 Diagnostics Laboratory Results Results Past 24 Hours Test 07/15/17 00:00 07/15/17 19:26 07/15/17 20:03 Range/Units White Blood Count 7.16 4.8-10.8 K/uL Red Blood Count 3.00 4.7-6.1 M/uL Hemoglobin 9.0 14.0-18.0 g/dL Hematocrit 27.6 42-52 % Mean Corpuscular Volume 92.0 80-100 fL Mean Corpuscular Hemoglobin 30.0 25-34 pg Mean Corpuscular Hemoglobin Concent 32.6 32-36 g/dl Platelet Count 297 130-400 K/uL Mean Platelet Volume 9.1 7.4-10.4 fL Neutrophils (%) (Auto) 58.6 % Lymphocytes (%) (Auto) 19.1 % Monocytes (%) (Auto) 21.2 % Eosinophils (%) (Auto) 0.4 % Basophils (%) (Auto) 0.1 % Neutrophils # (Auto) 4.19 1.4-6.5 K/uL Lymphocytes # (Auto) 1.37 1.2-3.4 K/uL Monocytes # (Auto) 1.52 0.11-0.59 K/uL Eosinophils # (Auto) 0.03 0-0.5 K/uL Basophils # (Auto) 0.01 0-0.2 K/uL RDW Standard Deviation 53.9 36.4-46.3 fL RDW Coefficient of Variation 15.8 11.5-14.5 % Immature Granulocyte % (Auto) 0.6 % Immature Granulocyte # (Auto) 0.04 0.00-0.02 K/uL Sodium Level 139 136-145 mmol/L Potassium Level 4.6 3.5-5.1 mmol/L Chloride Level 108 98-107 mmol/L Carbon Dioxide Level 24 21-32 mmol/L Anion Gap 7.0 3-11 mmol/L Blood Urea Nitrogen 49 7-18 mg/dl Creatinine 2.28 0.60-1.40 mg/dl Est Creatinine Clear Calc Drug Dose 22.1 ml/min Estimated GFR () 29.9 Estimated GFR (Non- 25.8 BUN/Creatinine Ratio 21.7 10-20 Random Glucose 98 70-99 mg/dl Calcium Level 8.4 8.5-10.1 mg/dl Total Bilirubin 0.4 0.2-1 mg/dl Direct Bilirubin < 0.1 0-0.2 mg/dl Aspartate Amino Transf (AST/SGOT) 10 15-37 U/L Alanine Aminotransferase (ALT/SGPT) < 6 12-78 U/L Alkaline Phosphatase 115 45-117 U/L Total Creatine Kinase 39 39-308 U/L Creatine Kinase MB 1.0 0.5-3.6 ng/ml Creatine Kinase MB Ratio 2.6 0-3.0 Troponin I < 0.015 0-0.045 ng/ml Total Protein 7.2 6.4-8.2 gm/dl Albumin 3.5 3.4-5.0 gm/dl Thyroid Stimulating Hormone (TSH) 1.630 0.300-4.500 uIu/ml Bedside Glucose 120 70-99 mg/dl Urine Color ORANGE Urine Appearance CLOUDY CLEAR Urine pH >= 9.0 4.5-7.5 Urine Specific Quinter 1.018 1.000-1.030 Urine Protein NEG NEG Urine Glucose (UA) NEG NEG Urine Ketones NEG NEG Urine Occult Blood 2+ NEG Urine Nitrite NEG NEG Urine Bilirubin NEG NEG Urine Urobilinogen NEG NEG Urine Leukocyte Esterase LARGE NEG Urine WBC (Auto) >30 0-5 /hpf Urine RBC (Auto) >30 0-4 /hpf Urine Hyaline Casts (Auto) 5-10 0-5 /lpf Urine Epithelial Cells (Auto) 20-30 0-5 /lpf Urine Bacteria (Auto) 4+ NEG Urine Yeast (Auto) NONE PRSENT Microbiology Results 07/15/17 Urine Culture, Received Pending Diagnostic Radiology CHEST ONE VIEW PORTABLE HISTORY: Pt c/o hypotension COMPARISON: Chest 04/25/2014. FINDINGS: The lungs are clear. Cardiac silhouette is normal in size. No pleural effusions. No pneumothorax. Moderate to large amount of well-formed stool seen within the colon. IMPRESSION: No acute process. Electronically signed by: Jl Martinez M.D. 07/15/2017 7:50 PM Dictated Date/Time: 07/15/2017 7:49 PM Impression H&P v2 Impression Assessment and Plan Syncopal episode Possible related to orthostatic hypotension Vs Vasovagal No focal neuro deficit Stable UTI History of recurrent UTI UA positive for large leukocyte and bacteria Received Cipro and Rocephin in the ER Recent urine culture on 06/21 grew proteus mirabilis that was sensitive to Rocephin We will continue Rocephin IV Check urine culture and blood culture Hypotension Possible related to dehydration Receive IV fluid Continue gentle hydration Monitor BP Acute kidney injury on CKD stage III Baseline creatinine 1 Creatinine on admission 2.2 Continue IV fluid Avoid nephrotoxic agent Monitor BMP BPH Continue Flomax Weight loss Due to poor oral intake Increase protein intake in diet Consult nutrition Parkinsonism Continue levodopa-carbidopa DVT prophylaxis on heparin subcu CODE STATUS full code Resuscitation Status VTE Prophylaxis Will order VTE Prophylaxis: Yes Physical Exam (per Admitting): General Appearance: no apparent distress, + cachetic, + pertinent finding Head: normocephalic, atraumatic Eyes: PERRL, EOMI ENT: hearing grossly normal Neck: no JVD, trachea midline Respiratory/Chest: chest non-tender, no respiratory distress, no accessory muscle use Cardiovascular: regular rate, rhythm, no edema, no JVD Abdomen/GI: normal bowel sounds, non tender, soft Back: no CVA tenderness Extremities/Musculoskelatal: no calf tenderness, no pedal edema Neurologic/Psych: no motor/sensory deficits, alert, normal mood/affect Skin: warm/dry, no rash Hospital Course Syncopal episode Possible related to orthostatic Hypotension Vs Vasovagal Blood Pressure was noted to be low at [facility] No focal neuro deficit No more low blood pressure noted Check Orthostasis-can not be checked as he can not stand upright Wheelchair bound Remains stable without any symptoms Can go back to [facility] today UTI-Gm Negative Bacilli History of recurrent UTI UA positive for large leukocyte and bacteria Received Cipro and Rocephin in the ER Recent urine culture on 06/21 grew proteus mirabilis that was sensitive to Rocephin We will continue Rocephin IV Check urine culture and blood culture-Gm negative Bacilli,Proteus Will change to oral before discharge Will change to Oral Keflex Total 10 days course Hypotension-resolved in the Hospital Possible related to dehydration Receive IV fluid Continue gentle hydration Monitor BP-lower side now Will need to take more time during any activity Explained to son Acute kidney injury on CKD stage III Baseline creatinine 1 Creatinine on admission 2.2 Continue IV fluid Avoid nephrotoxic agent Creatinine is improving -1.92 today BPH Continue Flomax Weight loss Due to poor oral intake Increase protein intake in diet Consult nutrition Parkinsonism Continue levodopa-carbidopa No acute symptoms DVT prophylaxis on heparin subcu CODE STATUS full code Discharge this afternoon Total time spent on discharge = 35 minutes This includes examination of the patient, discharge planning, medication reconciliation, and communication with other providers. Discharge Instructions Date of Service July 20, 2017. Admission Reason for Admission: Hypotension Discharge Discharge Diagnosis / Problem: Syncope,Secondary to Postural Hypotension , Parkinson disease,UTI Discharge Goals Goal(s): Prevent Disease Progression Activity Recommendations Activity Level: Assistance Required Therapies: Physical Therapy, Occupational Therapy . Additional Information Patient informed of condition: Yes Advance Directives: No DNR: No Level of Care: Skilled Communicable Disease: No Prognosis: Stable Oxygen at (LPM): 2 liters/min via NC as needed Current Hospital Diet Patient's current hospital diet: Regular Diet Discharge Diet Recommended Diet: Regular Diet (Take precaution to prevent aspiration) Pending Studies Studies pending at discharge: no Medical Emergencies . Who to Call and When: Medical Emergencies: If at any time you feel your situation is an emergency, please call 911 immediately. . Non-Emergent Contact Non-Emergency issues call your: Primary Care Provider . Past History Medical & Surgical History: (1) Dehydration (2) UTI (urinary tract infection) (3) Hypotension (4) Dyslipidemia (5) Parkinson's disease (6) Benign prostatic hyperplasia (7) CKD (chronic kidney disease) stage 3, GFR 30-59 ml/min . "Provider Documentation" section prepared by Terence Nguyen. . Core Measure Problem Core Measures: None <Electronically signed by Terence Nguyen M.D.> Signed: 07/20/17 [id number] Additional Copies To Allen aSm D.O.
== END 2017-07-20 15:46 | DRG 683 ==
LOC: EDBD 18:52 → C.EDB 18:53 → C.2T 21:13 → ENRESERV 21:17
PROVIDERS: ADMIT Internal Medicine; ATTEND Internal Medicine
DX: N17.9 Acute kidney failure, unspecified (principal); N39.0 Urinary tract infection, site not specified; R64 Cachexia; I95.1 Orthostatic hypotension; G20 Parkinson's disease; E86.0 Dehydration; R63.4 Abnormal weight loss; B96.4 Proteus (mirabilis) (morganii) as the cause of diseases classified elsewhere; N18.3 Chronic kidney disease, stage 3 (moderate); N40.0 Benign prostatic hyperplasia without lower urinary tract symptoms; Z51.81 Encounter for therapeutic drug level monitoring; Z79.899 Other long term (current) drug therapy; Z87.440 Personal history of urinary (tract) infections; Z68.20 Body mass index [BMI] 20.0-20.9, adult; Z85.828 Personal history of other malignant neoplasm of skin; Z88.8 Allergy status to other drugs, medicaments and biological substances; Z83.3 Family history of diabetes mellitus; Z82.49 Family history of ischemic heart disease and other diseases of the circulatory system